=== PATIENT | female | born 1990 | race Caucasian/White ===

== ENCOUNTER 2018-09-27 05:47 | Day surgery (SDC) | payer OTHER ==
[2018-09-27] MEDS ORDERED: MIDAZOLAM 1 MG/ML 2 ML INJ ×2 (08:11)
[2018-09-27] MEDS ORDERED: FENTAnyl 50 MCG/ML VIAL (08:11)
== END 2018-09-27 10:24 | disposition home or self-care (01) ==
LOC: GIL 05:47
DX: K21.9 Gastro-esophageal reflux disease without esophagitis (principal)
CPT/HCPCS: 43239; 84703; 88305; 88312